=== PATIENT | female | born 1970 | race Caucasian/White ===

== ENCOUNTER 2019-10-26 21:12 | Emergency (ER) | payer OTHER ==
[~2019-10-26] VITALS: Ht 170.2 cm; Wt 107.5 kg
[2019-10-26 21:22] VITALS: Ht 170.2 cm; Wt 107.5 kg
[2019-10-26 22:58] VITALS: BP 117/57
== END 2019-10-26 21:36 | disposition home or self-care (01) ==
LOC: ED 21:12
DX: H53.9 Unspecified visual disturbance (principal); H57.11 Ocular pain, right eye